=== PATIENT | male | born 1925 | race Caucasian/White ===

== ENCOUNTER 2016-10-18 03:35 | Inpatient (IN) | payer MEDICARE, OTHER ==
[~2016-10-18] VITALS: Ht 167.6 cm; Wt 76.2 kg
[2016-10-18] MEDS ORDERED: HYDRALAZINE HCL10 MG PO (05:00)
[2016-10-18] MEDS ORDERED: TOPROL XL25 MG PO (05:00)
[2016-10-18] MEDS ORDERED: ASPIRIN81 MG PO (05:00)
[2016-10-18] MEDS ORDERED: ISOSORBIDE MONO30 MG PO (05:01)
[2016-10-18] MEDS ORDERED: NITROSTAT0.4 MG SL (05:01)
[2016-10-18] MEDS ORDERED: SYMBICORT 16010.2 GM INH (05:02)
[2016-10-18] MEDS ORDERED: ZOCOR40 MG PO (05:02)
[2016-10-18] MEDS ORDERED: CEVIMELINE HCL30 MG PO (05:02)
[2016-10-18] MEDS ORDERED: GABAPENTIN300 MG PO (05:02)
[2016-10-18] MEDS ORDERED: PROAIR RESPICL90 MCG INH (05:03)
--- NOTE | 2016-10-18 07:22 | NUR ---
RECIEVED BEDSIDE REPORT FROM SYLVIA VICTOR. PT IS SLEEPING, BREATHING EVEN AND REGULAR. SPOUSE SLEEPING AT BEDSIDE. O2 VIA NASAL CANULA IN PLACE.
--- NOTE | 2016-10-18 07:43 | NUR ---
PT AWAKE AND ALERT. HARD OF HEARING, WEARS HEARING AIDS. LUNG SOUNDS COARSE AND WHEEZY, HEART RATE REGULAR. CONT PULSE OX IN PLACE, O2 VIA NASAL CANULA IN PLACE. LAB DRAW FOR LACTIC ACID DONE BY LAB.
--- NOTE | 2016-10-18 10:55 | NUR ---
HOLDING ISOSORBIDE UNTIL ORDERS CAN BE CLAIRIFIED. ORDER STATES DOSE OF 300MG. CHARGE NURSE AND PHARMACY AWARE. CALL PLACED TO HIS DAUGHTER TO BRING IN HOME MEDICATION BOTTLES. SHE WILL BRING THEM IN TODAY FOR PHARMACY TO REVIEW.
[2016-10-18] MEDS ORDERED: TOPROL XL50 MG PO (12:12)
--- NOTE | 2016-10-18 12:24 | NUR ---
MED REC COMPLETE PATIENT NO LONGER TAKES ISOSORBIDE. PATIENT DOES TAKE METOPROLOL SUCCINATE 50 MG BID.
--- NOTE | 2016-10-18 13:53 | NUR ---
PT UP TO SHOWER WITH FACING SLITTER. TOLERTATED WELL.
--- NOTE | 2016-10-18 14:27 | NUR ---
DAUGHTER BROUGHT IN MEDICATIONS FOR PHARMACY TO REVIEW. PHARMACY FOUND PT NO LONGER TAKES ISOSORBIDE. ORDER HAS BEEN DISCONTINUED.
--- NOTE | 2016-10-18 18:13 | NUR ---
SPOKE WITH DR MURILLO REGARDING PT ORDER FOR CLINDAMYCIN. ORDER STATED "Q6HRS@1200". IT WAS SCHEDULED FOR [address] MURILLO, GIVE Q 6 HRS. ORIGINAL ORDER DC, NEW ORDER ENTERED TO GIVE CLINDAMYCIN Q6HR STARTING AT 1800.
--- NOTE | 2016-10-18 18:33 | NUR ---
PT CALLED RN TO ADVISE IV WAS LEAKING. DETERMINED IV WAS INFLITRATED ON R FOREARM. NEW IV STARTED IN L FOREARM, 22G. BLOOD RETURN AND FLUSHED WELL.
--- NOTE | 2016-10-18 18:54 | NUR ---
PT ADMIT TO FLOOR EARLY AM. ON 2L O2 VIA NASAL CANULA, SCHEDULED DUONEBS EFFECTIVE. IV CLINDAMYCIN. IV IN R FOREARM INFILTRATED, NEW 22G IV STARTED IN L FORARM. VOIDS WELL, USES URINAL WELL. CLEAR LIQUID DIET, TOLERATES WELL. ONE PERSON ASSIST.
--- NOTE | 2016-10-18 19:38 | NUR ---
RECIEVED REPORT FROM DAY SHIFT NURSE. PT RESTING IN BED. JANITOR AND CLEANER ASSISTING PT TO DANGLE SO HE MAY USE URINAL. PT HAS MOIST COUGH. BLOOD NOTED IN SPUTUM. VS OBTAINED. PT DENIES NEEDS.
--- NOTE | 2016-10-18 20:46 | NUR ---
CCU CALLED REGARDING PT'S TELE. I REPOSITIONED ELECTRODES ON PT, RHYTHM APPEARING SLIGHTLY DIFFERENT THAN IT DID TODAY. CCU NURSE STATES LEAD [address] 1.[address] DEPRESSION. PT RESTING IN BED, DENIES CHEST PAIN. HEART SOUNDS REGULAR. VS STABLE. PT IN NO ACUTE DISTRESS. CALL PANIAGUA IN REACH.
--- NOTE | 2016-10-18 22:36 | NUR ---
PT SLEEPING. CALL PANIAGUA IN REACH.
--- NOTE | 2016-10-18 23:18 | NUR ---
ASSISTED PT AMBULATING TO BATHROOM. PT IS VERY UNSTEADY ON HIS FEET. PT BACK TO BED, CONT PULSE OX IN PLACE. NC IN PLACE. WATER PITCHER FILLED. PT COUGHED UP SMALL AMOUNT OF CLEAR SPUTUM. DENIES NEEDS AT THIS TIME.
--- NOTE | 2016-10-19 00:14 | NUR ---
PT SLEEPING. ABX INFUSING. CALL PANIAGUA IN REACH.
--- NOTE | 2016-10-19 03:26 | NUR ---
PT SLEEPING. NC IN PLACE. CALL PANIAGUA IN REACH.
--- NOTE | 2016-10-19 04:26 | NUR ---
CCU CALLED REGARDING TELE-REPORTS ST ELEVATION IN LEAD 2, CALLED MD, OBTAINING EKG. VS OBTAINED-STABLE. PT DENIES CHEST PAIN.
--- NOTE | 2016-10-19 04:43 | NUR ---
EKG SHOWING ST ELEVATION. MD DANGELO.
--- NOTE | 2016-10-19 05:14 | NUR ---
RN OBTAINING VS.
--- NOTE | 2016-10-19 06:12 | NUR ---
RN ASSISTING PT WITH URINAL AT BEDSIDE. ABX INFUSING. PT DENIES FURTHER NEEDS.
--- NOTE | 2016-10-19 06:28 | NUR ---
PT SLEPT MOST OF THE NIGHT. HE WAS UP A FEW TIMES TO VOID. PT VERY UNSTEADY ON FEET AFTER SITTING/LYING FOR LONG PERIODS OF TIME. PT ALERT AND ORIENTED X3, PT UNAWARE OF YEAR. TELE #[address] ELEVATION. EKG OBTAINED WHICH SHOWED ST ELEVATION ONCE AGAIN, MADE MD AWARE. NEW LABS ORDERED FOR THIS AM. PT COUGHING UP BLOODY SPUTUM AT TIMES.
--- NOTE | 2016-10-19 07:21 | NUR ---
RECIEVED BEDSIDE REPORT FROM SYLVIA TRAN. PT AWAKE AND ALERT IN BED. WAITING ON LAB RESULTS. PT STATED HIS SHOULDER/BACK ARE SORE, OFFERED TO GET HIM TO THE CHAIR FOR A CHANGE OF POSITION. TELE #[address] MD AWARE OF BLOODY SPUTUM AND ST ELEVATION.
--- NOTE | 2016-10-19 09:27 | NUR ---
PT UP WALKING WITH UNIVERSITY PROFESSOR. UNIVERSITY PROFESSOR REPORTS MAINTAINED O2 BETWEEN 89-92 WHILE WALKING. PT WAS STEADY ON FEET WITH FWW. NOW BACK IN CHAIR WITH ALARM ON.
--- NOTE | 2016-10-19 11:56 | NUR ---
PT UP IN RECLINER. NO COMPLAINTS OF DISCOMFORT OR PAIN. PT WOULD LIKE TO TAKE ANOTHER WALK AFTER LUNCH.
--- NOTE | 2016-10-19 13:15 | EKG ---
[facility] [address] [facility] [place], [place] [address] Signed Sinus tachycardia with fusion complexes Left axis deviation Right bundle branch block Abnormal ECG No previous ECGs available Confirmed by DENNIS MURILLO MD ([id number]) on 10/19/2016 1:15:46 PM Electronically Signed By: DENNIS MURILLO MD 10/19/16 1315 PATIENT NAME: JULIET JUSTIN Electrocardiogram DATE OF : [birth year] PHYSICIAN: DENNIS MURILLO MD REPORT #: [id number] REPORT IS CONFIDENTIAL AND NOT TO BE RELEASED WITHOUT AUTHORIZATION
--- NOTE | 2016-10-19 14:35 | NUR ---
PT UP WALKING WITH STEM ROLLER OPERATOR. PT TOLERATED WELL.
--- NOTE | 2016-10-19 15:23 | NUR ---
Patient is doing good. Took to ambulate, now he is resting.
--- NOTE | 2016-10-19 15:49 | NUR ---
PT RESTING IN CHAIR WITH EYES CLOSED. WAKES TO MOVEMENT IN ROOM. PT DENIES PAIN OR DISCOMFORT AT THIS TIME.
--- NOTE | 2016-10-19 17:56 | NUR ---
PT UP TO CHAIR FOR MOST OF THE DAY, STATES THE BED IS UNCOMFORTABLE. PT UP WALKING X2, MAINTAINED O2 SATURATIONS BETWEEN 89-90%. TELE #9, NO ABNORMALITIES NOTED. TROPONIN LEVELS <0.010. USES URINAL, 1 PERSON ASSIST TO STANDING. NO PAIN REPORTED. NEW IV STARTED IN LEFT AC.
--- NOTE | 2016-10-19 19:40 | NUR ---
RECIEVED REPORT FROM DAY SHIFT NURSE. PT UPRIGHT IN BED WITH VISITORS AT BEDSIDE. NC IN PLACE-02 AT 97%. MEAL TRAY REMOVED. PT DENIES NEEDS AT THIS TIME. CALL PANIAGUA IN REACH.
--- NOTE | 2016-10-19 21:14 | NUR ---
PT RESTING IN BED. MOIST, PRODUCTIVE COUGH, COUGHING UP THICK, BLOODY SPUTUM. NIGHT MEDICATIONS ADMINISTERED. NO ISSUES SWALLOWING. PT DENIES NEEDS AT THIS TIME. CALL PANIAGUA IN REACH.
--- NOTE | 2016-10-19 23:08 | NUR ---
PT SLEEPING. NC IN PLACE. CALL PANIAGUA IN REACH.
--- NOTE | 2016-10-20 00:20 | NUR ---
RT ADMINISTERING NEB TX. PT DENIES NEEDS. ABX INFUSING. REFILLED WATER PITCHER. CALL PANIAGUA IN REACH.
--- NOTE | 2016-10-20 01:46 | NUR ---
PT SLEEPING, NC IN PLACE. CALL PANIAGUA IN REACH.
--- NOTE | 2016-10-20 03:01 | NUR ---
PT SLEEPING. NC IN PLACE. CALL PANIAGUA IN REACH.
--- NOTE | 2016-10-20 04:40 | NUR ---
PT SLEEPING. NC IN PLACE. CALL PANIAGUA IN REACH.
--- NOTE | 2016-10-20 05:59 | NUR ---
PT HAD A GREAT NIGHT. SLEPT ALL NIGHT. ONE EPISODE OF HEMOPTYSIS. PT NOT COUGHING THIS MORNING. LUNG SOUNDS BETTER THIS MORNING. PT STILL ON 2L VIA NC. PT VERY UNSTEADY. NO ACUTE CHANGES.
--- NOTE | 2016-10-20 09:00 | NUR ---
PT AWAKE SITTING UP IN RECLINER. ALERT AND ORIENTED. DENIES PAIN OR OTHER CONCERNS, REPORTS THAT HIS BREATHING HAS IMPROVED GREATLY SINCE ADMISSION. ATE ALL OF CLEAR LIQUID BREAKFAST WITHOUT DIFFICULTY. IV SL, FLUSHES WELL. CALL LIGHT WITHIN REACH.
--- NOTE | 2016-10-20 10:26 | NUR ---
SPEECH THERAPIST IN ROOM PERFORMING SWALLOW EVAL. PT AT BEDSIDE.
--- NOTE | 2016-10-20 11:34 | NUR ---
PT SITTING UP IN RECLINER AWAKE. DENIES NEEDS OR CONCERNS AT THIS TIME. CALL LIGHT WITHIN REACH.
--- NOTE | 2016-10-20 12:47 | NUR ---
I JUST STOOD BY TO SEE IF NEEDED ANY HELP WITH SHOWERING AND GETTING DRESSED.
--- NOTE | 2016-10-20 12:53 | NUR ---
SET UP IN CHAIR FOR BOTH MEALS TODAY.
--- NOTE | 2016-10-20 14:15 | NUR ---
PT TRANSPORTED TO IMAGING FOR BARIUM SWALLOW VIA WHEELCHAIR.
--- NOTE | 2016-10-20 14:45 | NUR ---
RETURNED FROM IMAGING. REQUESTED TO AMB HALLWAY. AMB WITH PT IN HALLWAY WITH WALKER, ELYSSA WELL. BACK TO ROOM AND SITTING UP IN CHAIR. CALL LIGHT WITHIN REACH.
--- NOTE | 2016-10-20 16:54 | NUR ---
PT UP TO BATHROOM ONE PERSON ASSIST WITH FWW. PT TOLERATED ACTIVITY WELL. ASSESSMENT COMPLETE.
--- NOTE | 2016-10-20 17:44 | NUR ---
PT HAS BEEN UP AMBULATING IN HALLS WITH ONE PERSON ASSIST FWW. HE HAS BEEN COOPERATIVE WITH CARE PLAN. HE HAD BARRIUM SWALLOW EVALUATION TODAY, HE WAS THEN ADVANCED TO CHOPPED FOODS AND THIN LIQUIDS. HE HAS ORDER FOR HOME QUALIFICATION FOR OXYGEN, FOR PSSIBLE DISCHARGE TOMORROW. HE REPORTS NO PAIN. REMAINS ON TELEMETRY IN NSR.
--- NOTE | 2016-10-20 19:41 | NUR ---
RECIEVED REPORT FROM DAY SHIFT NURSE. PT RESTING IN BED WITH NC IN PLACE. PT DENIES NEEDS AT THIS TIME. CALL PANIAGUA IN REACH.
--- NOTE | 2016-10-20 20:23 | NUR ---
PT UP TO BATHROOM WITH ASSIST. VS OBTAINED. DENIES NEEDS AT THIS TIME. CALL PANIAGUA IN REACH.
--- NOTE | 2016-10-20 22:51 | NUR ---
PT SLEEPING. NC IN PLACE. CALL PANIAGUA IN REACH.
--- NOTE | 2016-10-20 23:25 | NUR ---
PT RESTING WATCHING TV. COMPRESSOR REPAIRER ASSISTED PT TO BATHROOM. CONT. PULSE OX IN PLACE. PT DENIES NEEDS AT THIS TIME, CALL PANIAGUA IN REACH.
--- NOTE | 2016-10-21 00:40 | NUR ---
PT SLEEPING. ABX STARTED. CALL PANIAGUA IN REACH. NC IN PLACE. O2 AT 94%.
--- NOTE | 2016-10-21 02:17 | NUR ---
PT SLEEPING. NC IN PLACE. CALL PANIAGUA IN REACH.
--- NOTE | 2016-10-21 03:46 | NUR ---
PT RESTING IN BED. NC IN PLACE WITH CONT. PULSE OX. BOOSTED PT UP IN BED WITH ASSIST. PT DENIES NEEDS. CALL PANIAGUA IN REACH.
--- NOTE | 2016-10-21 05:49 | NUR ---
PT SLEEPING. ABX STARTED. CALL PANIAGUA IN REACH.
--- NOTE | 2016-10-21 05:53 | NUR ---
PT HAD A GOOD NIGHT. SLEPT ALL NIGHT. ON 2L O2 AT 95%. NO C/O PAIN. VOIDING WELL. IV PATENT. LIKELY HOME TODAY.
--- NOTE | 2016-10-21 06:08 | NUR ---
NURSE NOTIFIED RE DEMETRIUSP.
--- NOTE | 2016-10-21 09:10 | NUR ---
PT SITITNGUP IN RECLINER READY FRO BREAKFAST. QUALIFIED FOR HOME O2 THIS AM.
--- NOTE | 2016-10-21 09:36 | NUR ---
TALKED WITH PT REGARDING HIS NEED FOR O2 ON THE WAY HOME AND AT HOME, HE STATED HE WOULD LIKE TO USE IN HOME MEDICAL.
--- NOTE | 2016-10-21 10:24 | NUR ---
PT IS SITTING UP IN THE CAHIR WITH CALL LIGHT IN REACH. PT'S DENTURES WERE CLEANED AND GIVEN TO HIM RIGHT BEFORE BREAKFAST. PT ASKED FOR ICE WATER AND AN ENSURE
[2016-10-21] MEDS ORDERED: CLINDAMYCI600 MG/50 PO (11:02)
[2016-10-21] MEDS ORDERED: TOPROL XL50 MG PO (11:03)
--- NOTE | 2016-10-21 11:38 | NUR ---
FAXED CHART NOTES TO IN HOME [facility] INCLUDING FACESHEET, H AND P, PROG NOTES, DC SUMMARY, ORDER, RT HOME QUALIFIER, RECIEVED FAX CONFIRMATION BACK.
[2016-10-21] MEDS ORDERED: CLINDAMYCIN HC300 MG PO (12:21)
--- NOTE | 2016-10-21 12:53 | NUR ---
EDUCATION WITH DISCHARGE PACKET GIVEN TO PT AND FAMILY ON MEDICATION LAST DOSE NEXT DOSE. ACTIVITY TOLERATED, PORTABLE OXYGEN FOR TRAVEL HOME AND PHONE NUMBER TO CALL IN-HOME MEDICAL WHEN NEARING HOME FOR OXYGEN DELIVERY. ALSO FOLLOW UP APPOINTMENT MADE AND [facility] [place]. GRETEL FROM PHARMACY CONSULTED. ALL EDUCATION, PT AND FAMILY VERBALIZED UNDERSTANDING.
--- NOTE | 2016-10-21 21:45 | EKG ---
[facility] [address] [facility] [place] [address] Signed Normal sinus rhythm Prolonged QT Abnormal ECG No previous ECGs available Confirmed by YU MICHAELS MD ([id number]) on 10/21/2016 9:45:29 PM Electronically Signed By: UY MICHAELS MD 10/21/16 2145 PATIENT NAME: JULIET JUSTIN Electrocardiogram DATE OF : [birth year] PHYSICIAN: YU MICHAELS MD REPORT #: [id number] REPORT IS CONFIDENTIAL AND NOT TO BE RELEASED WITHOUT AUTHORIZATION
== END 2016-10-19 08:47 | disposition home or self-care (01) | DRG 179 ==
LOC: ED 03:35 → MS 03:37
PROVIDERS: ADMIT Internal Medicine
DX: J69.0 Pneumonitis due to inhalation of food and vomit (principal); I25.10 Atherosclerotic heart disease of native coronary artery without angina pectoris; Z95.1 Presence of aortocoronary bypass graft; R09.02 Hypoxemia; Z99.81 Dependence on supplemental oxygen; Z87.891 Personal history of nicotine dependence; Z79.82 Long term (current) use of aspirin
CPT/HCPCS: 36415; 71010; 74230; 80053; 81001; 83605; 83880; 84484; 85025; 85610; 85730; 87040; 92610; 92611; 93005; 93010; 94640; 94761; 94762; J0696; J2405; J3490; J7030